=== PATIENT | female | born 1990 | race Two or more races ===

== ENCOUNTER → 2017-02-06 | Outpatient (REF) | payer OTHER | LOC: M SFHCLERA 13:17 | PROVIDERS: ATTEND Nurse Practitioner Family | DX: J02.9 Acute pharyngitis, unspecified (principal); L73.9 Follicular disorder, unspecified ==

== ENCOUNTER 2017-07-19 08:13 | Emergency (ER) | payer OTHER ==
[2017-07-19] MEDS: CIPROFLOXACIN HC OTIC SUSPENSION AS (08:39)
== END 2017-07-19 09:31 | disposition home or self-care (01) ==
LOC: M ED 08:13
DX: J02.9 Acute pharyngitis, unspecified (principal); H66.92 Otitis media, unspecified, left ear; F33.9 Major depressive disorder, recurrent, unspecified; F17.200 Nicotine dependence, unspecified, uncomplicated; Z79.899 Other long term (current) drug therapy
CPT/HCPCS: 87880

== ENCOUNTER → 2021-02-04 | Outpatient (CLI) | payer OTHER ==
[~2021-02-04] MED LIST: ABIL1TAB13 PO; ACET-716 PO; BUPR300T92; CIPR0.3S6 AS; HYDR-3715 PO; METH20TA29 PO; ZOFR4TAB14 PO; [UNRECOGNIZED DRUG - CODE]
== END ==
LOC: M LABSMTC 10:19
PROVIDERS: ATTEND Anesthesiology
DX: Z20.828 Contact with and (suspected) exposure to other viral communicable diseases (principal); Z11.52 Encounter for screening for COVID-19

== ENCOUNTER 2021-02-09 10:50 | Day surgery (SDC) | payer OTHER ==
[~2021-02-09] VITALS: Ht 175.3 cm; Wt 84.1 kg
[~2021-02-09 10:50] MED LIST changes: +LR 1,000 ML IV ONE
--- OUTSIDE RECORDS SUMMARY | 2021-02-09 10:52 | CCD | Continuity of Care Document ---
Author Author Tiffanie PAUL MD Organization Unknown Address [address] [facility] [address] [place] [address] Phone [phone] Care Team Providers Care Broiler Supervisor Name Role Phone Reason, Jerry Botello AUTM [phone] [facility] AUTM [phone] Problems Description No Information Available Social History Type Date Description Comments Sex Unknown ETOH Use Denies alcohol use Tobacco Use Start: Unknown Smokes 1/2 Pack A Day Recreational Drug Use Denies Drug Use Allergies, Adverse Reactions, Alerts Description No Known Drug Allergies Medications Active Medications SIG Qnty Indications Ordering Provide r Date Methylphenidate HCL 20mg Tablets Take One Tablet By Mouth Three Times A Day Maximum Daily Dose 3 Unknown Ibuprofen 800mg Tablets Take One Tablet By Mouth Twice A Day as Needed Unknown 00/0 Immunizations Description No Information Available Vital Signs Date Vital Result Comment 12/06/2020 1:38pm Height 69 inches 5'9" Weight 170.00 lb BMI (Body Mass Index) 25.1 kg/m2 [place] Body Weight 145 lb Weight 77.112 kg BSA (Body Surface Area) 1.93 m2 08/23/2020 10:28am Height 69 inches 5'9" Weight 170.00 lb BMI (Body Mass Index) 25.1 kg/m2 [place] Body Weight 145 lb Weight 77.112 kg BSA (Body Surface Area) 1.93 m2 Results Description No Information Available Procedures Date Code Description Status 12/06/2020 04685 Office/Outpatient Established Mo d MDM 30-39 Min Completed 08/23/2020 75903 Office/Outpatient New Moderate M DM 45-59 Minutes Completed Medical Devices Description No Information Available Encounters Type Date Location Provider Dx Diagnosis Office Visit 12/06/2020 1:30p [facility] Link Paul MD H65.493 Other chronic nonsuppurative otitis media, bilateral H69.93 Unspecified Eustachian tube disorder, bilateral Office Visit 08/23/2020 10:00a [facility] Link Paul MD H65.93 Unspecified nonsuppurative otitis media, bilateral H91.93 Unspecified hearing loss, bi lateral H69.93 Unspecified Eustachian tube disorder, bilateral Assessments Date Code Description Provider 12/06/2020 H65.493 Other chronic nonsuppurative berny tis media, bilateral Link Paul MD 12/06/2020 H69.93 Unspecified Eustachian tube diso rder, bilateral Link Paul MD 08/23/2020 H65.93 Unspecified nonsuppurative otiti s media, bilateral Link Paul MD 08/23/2020 H91.93 Unspecified hearing loss, bilate ral Link Paul MD 08/23/2020 H69.93 Unspecified Eustachian tube diso rder, bilateral Link Paul MD Plan of Treatment No Information Available Functional Status Description No Information Available Mental Status Description No Information Available Referrals Refer to Dr Reason for Referral Status Appt Link Paul MD SAMPLE PROCESSOR CHRONIC EARS INFECTIONS REF E RE[facility] Closed 08/03/[address] [address] [phone]
--- OUTSIDE RECORDS SUMMARY | 2021-02-09 10:53 | CCD | Continuity of Care Document ---
Author Author Tiffanie PAUL MD Organization Unknown Address [address] [place] [address] [address] [place] [address] Phone [phone] Care Team Providers Care Inspector Of Dredging Name Role Phone Reason, Jerry Botello AUTM [phone] [facility] AUTM [phone] Problems Description No Information Available Social History [...] Mouth Twice A Day as Needed Unknown 000 Immunizations Description No Information Available Vital Signs Date Vital Result Comment 12/06/2020 1:38pm Height 69 inches 5'9" Weight 170.00 lb BMI (Body Mass Index) 25.1 kg/m2 [place] Body Weight 145 lb Weight 77.112 kg BSA (Body Surface Area) 1.93 m2 08/23/2020 10:28am Height 69 inches 5'9" Weight 170.00 lb BMI (Body Mass Index) 25.1 kg/m2 [place] Body Weight 145 lb Weight 77.112 kg BSA (Body Surface Area) 1.93 m2 Results Description No Information Available Procedures Date Code Description Status 08/23/2020 68713 Office/Outpatient New Moderate M DM 45-59 Minutes Completed Medical Devices Description No Information Available Encounters Type Date Location Provider Dx Diagnosis Office Visit 08/23/2020 10:00a [facility] Link Paul MD H65.93 Unspecified [...] Description No Information Available Referrals Refer to Reason for Referral Status Appt Date Link Paul MD RECLAMATION WORKER CHRONIC EARS INFECTIONS REF E RE[facility] Closed 08/03/[address] [address] [phone]
--- OUTSIDE RECORDS SUMMARY | 2021-02-09 10:53 | CCD | Continuity of Care Document ---
Author Author Tiffanie PAUL MD Organization Unknown Address [address] [place] [address] [address] [place] [address] Phone [phone] Care Team Providers Care Education Supervisor Name Role Phone Reason, Jerry Botello AUTM [phone] [facility] AUTM [phone] Problems Description No Information Available Social History [...] lb BMI (Body Mass Index) 25.1 kg/m2 [place] Body Weight 145 lb Weight 77.112 kg BSA (Body Surface Area) 1.93 m2 08/23/2020 10:28am Height 69 inches 5'9" Weight 170.00 lb BMI (Body Mass Index) 25.1 kg/m2 [place] Body Weight 145 lb Weight 77.112 kg BSA (Body Surface Area) 1.93 m2 Results Description No Information Available Procedures Date Code Description Status 08/23/2020 77304 Office/Outpatient New Moderate M DM 45-59 Minutes Completed Medical Devices Description No Information Available Encounters Type Date Location Provider Dx Diagnosis Office Visit 08/23/2020 10:00a [facility] Link Paul MD H65.93 Unspecified [...] Referral Status Appt Date Link Paul MD DIRECTOR CASE MANAGEMENT CHRONIC EARS INFECTIONS REF E [facility] Closed 08/03/[address] [address] [phone]
--- OUTSIDE RECORDS SUMMARY | 2021-02-09 10:53 | CCD | Continuity of Care Document ---
Author Author Tiffanie PAUL MD Organization Unknown Address [address] [place] [address] [address] [place] [address] Phone [phone] Care Team Providers Care Bingo Worker Name Role Phone Reason, Jerry Botello AUTM [phone] [facility] AUTM [phone] Problems Description No Information Available Social History [...] lb BMI (Body Mass Index) 25.1 kg/m2 [place] Body Weight 145 lb Weight 77.112 kg BSA (Body Surface Area) 1.93 m2 08/23/2020 10:28am Height 69 inches 5'9" Weight 170.00 lb BMI (Body Mass Index) 25.1 kg/m2 [place] Body Weight 145 lb Weight 77.112 kg BSA (Body Surface Area) 1.93 m2 Results Description No Information Available Procedures Date Code Description Status 08/23/2020 49460 Office/Outpatient New Moderate M DM 45-59 Minutes Completed Medical Devices Description No Information Available Encounters Type Date Location Provider Dx Diagnosis Office Visit 08/23/2020 10:00a [facility] Link Paul MD H65.93 Unspecified [...] Referral Status Appt Date Link Paul MD RISK REDUCTION COUNSELOR CHRONIC EARS INFECTIONS REF E RE[facility]ON [facility] Closed 08/03/[address] [address] [phone]
--- OUTSIDE RECORDS SUMMARY | 2021-02-09 10:53 | CCD ---
Author Author [facility] Organization [facility] Address Unknown Phone Unavailable Care Team Providers Care Bakery Products Checker Name Role Phone Marilyn WAHL MD Unavailable Unavailable Marilyn WAHL MD Unavailable Unavailable Marilyn WAHL MD Unavailable Unavailable Marilyn WAHL MD Unavailable Unavailable Marilyn WAHL MD Unavailable Unavailable UNKNOWN Unavailable Unavailable Marilyn Soriano PA Unavailable Marilyn Soriano Sai PA Unavailable Soriano R Sai PA Unavailable Soriano R Sai PA Unavailable Soriano R Sai PA Unavailable Soriano R Sai PA Unavailable Soriano, R Sai PA Unavailable Soriano R Sai PA Unavailable Soriano, R Sai PA Unavailable Soriano, R Sai PA Unavailable Soriano R Sai PA Unavailable REASON, L EDWARD DO Unavailable Unavailable REASON, L EDWARD DO Unavailable Unavailable REASON, L EDWARD DO Unavailable Unavailable REASON, L EDWARD DO Unavailable Unavailable REASON, L EDWARD DO Unavailable Unavailable REASON, L EDWARD DO Unavailable Unavailable REASON, L EDWARD DO Unavailable Unavailable REASON, L EDWARD DO Unavailable Unavailable REASON, L EDWARD DO Unavailable Unavailable REASON, L EDWARD DO Unavailable Unavailable REASON, L EDWARD DO Unavailable Unavailable REASON, L EDWARD DO Unavailable Unavailable REASON, L EDWARD DO Unavailable Unavailable REASON, L EDWARD DO Unavailable Unavailable REASON, L EDWARD DO Unavailable Unavailable REASON, L EDWARD DO Unavailable Unavailable REASON, L EDWARD DO Unavailable Unavailable REASON, L EDWARD DO Unavailable Unavailable REASON, L EDWARD DO Unavailable Unavailable REASON, L EDWARD DO Unavailable Unavailable REASON, L EDWARD DO Unavailable Unavailable REASON, L EDWARD DO Unavailable Unavailable REASON, L EDWARD DO Unavailable Unavailable REASON, L EDWARD DO Unavailable Unavailable REASON, L EDWARD DO Unavailable Unavailable REASON, L EDWARD DO Unavailable Unavailable REASON, L EDWARD DO Unavailable Unavailable REASON, L EDWARD DO Unavailable Unavailable REASON, L EDWARD DO Unavailable Unavailable REASON, L EDWARD DO Unavailable Unavailable REASON, L EDWARD DO Unavailable Unavailable REASON, L EDWARD DO Unavailable Unavailable REASON, L EDWARD DO Unavailable Unavailable REASON, L EDWARD DO Unavailable Unavailable REASON, L EDWARD DO Unavailable Unavailable REASON, L EDWARD DO Unavailable Unavailable REASON, L EDWARD DO Unavailable Unavailable REASON, L EDWARD DO Unavailable Unavailable REASON, L EDWARD DO Unavailable Unavailable REASON, L EDWARD DO Unavailable Unavailable REASON, L EDWARD DO Unavailable Unavailable REASON, L EDWARD DO Unavailable Unavailable REASON, L EDWARD DO Unavailable Unavailable REASON, L EDWARD DO Unavailable Unavailable REASON, L EDWARD DO Unavailable Unavailable REASON, L EDWARD DO Unavailable Unavailable REASON, L EDWARD DO Unavailable Unavailable REASON, L EDWARD DO Unavailable Unavailable REASON, L EDWARD DO Unavailable Unavailable REASON, L EDWARD DO Unavailable Unavailable REASON, L EDWARD DO Unavailable Unavailable REASON, L EDWARD DO Unavailable Unavailable REASON, L EDWARD DO Unavailable Unavailable REASON, L EDWARD DO Unavailable Unavailable REASON, L EDWARD DO Unavailable Unavailable REASON, L EDWARD DO Unavailable Unavailable REASON, L EDWARD DO Unavailable Unavailable REASON, L EDWARD DO Unavailable Unavailable REASON, L EDWARD DO Unavailable Unavailable REASON, L EDWARD DO Unavailable Unavailable REASON, L EDWARD DO Unavailable Unavailable REASON, L EDWARD DO Unavailable Unavailable REASON, L EDWARD DO Unavailable Unavailable REASON, L EDWARD DO Unavailable Unavailable REASON, L EDWARD DO Unavailable Unavailable REASON, L EDWARD DO Unavailable Unavailable REASON, L EDWARD DO Unavailable Unavailable HUMBERTO, C LULU MD Unavailable Unavailable HUMBERTO, C LULU MD Unavailable Unavailable HUMBERTO, C LULU MD Unavailable Unavailable HUMBERTO, C LULU MD Unavailable Unavailable HUMBERTO, C LULU MD Unavailable Unavailable HUMBERTO, C LULU MD Unavailable Unavailable HUMBERTO, C LULU MD Unavailable Unavailable HUMBERTO, C LULU MD Unavailable Unavailable HUMBERTO, C LULU MD Unavailable Unavailable HUMBERTO, C LULU MD Unavailable Unavailable HUMBERTO, C LULU MD Unavailable Unavailable HUMBERTO, C LULU MD Unavailable Unavailable HUMBERTO, C LULU MD Unavailable Unavailable HUMBERTO, C LULU MD Unavailable Unavailable HUMBERTO, C LULU MD Unavailable Unavailable HUMBERTO, C LULU MD Unavailable Unavailable HUMBERTO, C LULU MD Unavailable Unavailable HUMBERTO, C LULU MD Unavailable Unavailable HUMBERTO, C LULU MD Unavailable Unavailable HUMBERTO, C LULU MD Unavailable Unavailable HUMBERTO, C LULU MD Unavailable Unavailable HUMBERTO, C LULU MD Unavailable Unavailable HUMBERTO, C LULU MD Unavailable Unavailable HUMBERTO, C LULU MD Unavailable Unavailable HUMBERTO, C LULU MD Unavailable Unavailable HUMBERTO, C LULU MD Unavailable Unavailable HUMBERTO, C LULU MD Unavailable Unavailable HUMBERTO, C LULU MD Unavailable Unavailable HUMBERTO, C LULU MD Unavailable Unavailable HUMBERTO, C LULU MD Unavailable Unavailable HUMBERTO, C LULU MD Unavailable Unavailable HUMBERTO, C LULU MD Unavailable Unavailable HUMBERTO, C LULU MD Unavailable Unavailable HUMBERTO, C LULU MD Unavailable Unavailable Re-disclosure Warning The records that you are about to access may contain information from federally-assisted alcohol or drug abuse programs. If such information is present, then the following federally mandated warning applies: This information has been disclosed to you from records protected by federal confidentiality rules (42 CFR part 2). The federal rules prohibit you from making any further disclosure of this information unless further disclosure is expressly permitted by the written consent of the person to whom it pertains or as otherwise permitted by 42 CFR part 2. A general authorization for the release of medical or other information is NOT sufficient for this purpose. The Federal rules restrict any use of the information to criminally investigate or prosecute any alcohol or drug abuse patient.The records that you are about to access may contain highly sensitive health information, the redisclosure of which is protected by Article 27-F of the [facility] Public Health law. If you continue you may have access to information: Regarding HIV / AIDS; Provided by facilities licensed or operated by the [facility] Office of Mental Health; or Provided by the [facility] Office for People With Developmental Disabilities. If such information is present, then the following [facility] mandated warning applies: This information has been disclosed to you from confidential records which are protected by state law. State law prohibits you from making any further disclosure of this information without the specific written consent of the person to whom it pertains, or as otherwise permitted by law. Any unauthorized further disclosure in violation of state law may result in a fine or shelter sentence or both. A general authorization for the release of medical or other information is NOT sufficient authorization for further disc losure. Allergies and Adverse Reactions Type Description Substance Reaction Status Data Source(s ) Drug allergy Drug allergy No Known Allergies [facility] Encounters Encounter Providers Location Date Indications Data Source(s ) Outpatient Attender: LULU Corado/Toya/Kayleen phillips 12/06/2020 01:30:00 PM EDT [facility] ([facility] Outpatient Attender: UNKNOWN CPSCAORT-LABEJN 08/23/2020 03:13:00 PM E [facility] Outpatient Attender: ESPERANZA DOMINGO DO ED-LAB 08/23 01:16:00 PM EDT - 08/23/2020 01:17:00 PM EDT Z205 [facility] Z205 Patient discharged. Outpatient Attender: LULU Corado/Gia phillips 08/23/2020 10:00:00 AM EDT [facility] ([facility]) Outpatient Attender: ABBIE WAHL MD SURG-LAB 07/06/2020 03:29:0 0 PM EDT [facility]. Emergency Attender: Sai BRASHER ED-ED 021 07:51:00 PM EST - 06/14/2020 08:56:00 PM EST EAR PAIN [facility] EAR PAIN Patient discharged. Outpatient [facility] 02/11/2020 11:32:00 AM EDT [facility] 02/09/2020 03:34:00 PM EDT [facility] 01/11/2020 07:16:01 AM EDT [facility] Out[facility] 01/09/2020 12:02:14 AM EDT [facility] Outpatient [facility] 01/08/2020 04:30:12 PM EDT [facility] Outpatient [facility] 01/08/2020 04:29:00 PM EDT [facility] Outpatient [facility] 01/08/2020 02:27:00 PM EDT [facility] Outpatient [facility] 01/07/2020 12:02:32 AM EDT [facility] Outpatient [facility] 01/06/2020 11:03:01 AM EDT [facility] Outpatient [facility] 01/06/2020 11:02:02 AM EDT [facility] Medications No Information Insurance Providers Payer name Policy type / Coverage type Policy ID Covered alliance party ID Covered alliance party's relationship to valverde Policy [place] Plan Information Managed Care [place] P [id number] S [id number] Managed Care [place] P [id number] S [id number] Medicaid S [id number] S [id number] Medicaid S [id number] S [id number] [facility] MEDICAID MANAGED CARE - OP [id number] und efined [id number] [place] [facility] [place] [id number] 18 [id number] Managed Care [place] P [id number] S [id number] MEDICAID [facility] [id number] Unknown [id number] Managed Care [place] P UNAVAILABLE S UNAVAILABLE Medicaid S UNAVAILABLE S UNAVAILA BLE BLUE CROSS -O/P [id number] 19 [id number] [facility] [id number] SP [id number] [employer] OTHER -CLINIC [id number] 18 [id number] [facility] [id number] S [id number] [facility] [place] 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 ) OFFICE OUTPATIENT NEW 45 MINUTES 08/23/2020 12:00:00 A M EDT [facility] ([facility] ) Results ID Date Data Source [id number] 08/23/2020 02:09:00 PM EDT [facility] Name Value Range Interpretation Code Description Data Sherice rce(s) Supporting Document(s) White Blood Count 3.5-10.5 Normal (applies to non-numeri c results) [facility] Red Blood Count 3.90-5.00 Normal (applies to non-numeric results) [facility] Hemoglobin 12.0-15.5 Normal (applies to non-numeric resul ts) [facility] Hematocrit 34.9-44.5 Normal (applies to non-numeric resul ts) [facility] Mean Corpuscular Volume 81.2-95.1 Normal (applies to non- numeric results) [facility] Mean Corpuscular Hgb 25.6-32.2 Normal (applies to non-num matti results) [facility] Mean Corpuscular Hgb Conc 32.0-36.0 Normal (applies to no n-numeric results) [facility] Red Cell Distribution Width 11.9-15.5 Normal (appli es to non-numeric results) [facility] Platelet Count 269 x10 3/uL 150-450 Normal (applies to non-numeric results) [facility] Mean Platelet Volume 9.4-12.4 Normal (applies to non-num matti results) [facility] Neutrophils% (Auto) 31.0-71.0 Normal (applies to non-nume markus results) [facility] Lymphocytes% (Auto) 20.0-55.0 Normal (applies to non-nume markus results) [facility] Monocytes% (Auto) 4.0-12.0 Normal (applies to non-numeri c results) [facility] Eosinophils% (Auto) 1.0-8.0 Normal (applies to non-nume markus results) [facility] Basophils% (Auto) 0.0-2.0 Normal (applies to non-numeri c results) [facility] Immature Granulocytes% (Auto) 0.0-2.0 Normal (rigo lies to non-numeric results) [facility] Neutrophils# (Auto) 1.50-6.20 Normal (applies to non-nume markus results) [facility] Lymphocytes# (Auto) 1.20-4.00 Normal (applies to non-nume markus results) [facility] Monocytes# (Auto) 0.00-0.90 Normal (applies to non-numeri c results) [facility] Eosinophils# (Auto) 0.00-0.50 Normal (applies to non-nume markus results) [facility] Basophils# (Auto) 0.00-0.20 Normal (applies to non-numeri c results) [facility] Immature Granulocytes# (Auto) 0.00-7.00 No rmal (applies to non-numeric results) [facility] ID Date Data Source [id number] 08/23/2020 08:50:00 PM EDT [facility] Name Value Range Interpretation Code Description Data Sherice rce(s) Supporting Document(s) Hepatitis C Virus Ab result Nonreactive Norm al (applies to non-numeric results) [facility] Test Performed By: [facility] [address] [place] [address] Director: Rachel Hinojosa MD ID Date Data Source [id number] 08/23/2020 06:45:00 PM EDT [facility] Name Value Range Interpretation Code Description Data Sherice rce(s) Supporting Document(s) Hep C Ab-T Test Nonreactive Normal (applies to non-numeric results) [facility] [address] [place] [address] Director: Rachel Hinojosa MD ID Date Data Source [id number] 08/23/2020 02:38:00 PM EDT [facility] Name Value Range Interpretation Code Description Data Sherice rce(s) Supporting Document(s) Sodium 142 mmol/L 136-145 Normal (applies to non-numeric resul ts) [facility] Potassium 3.5-5.1 Normal (applies to non-numeric resul ts) [facility] Chloride 104 mmol/L 98-107 Normal (applies to non-numeric resul ts) [facility] Carbon Dioxide CO2 21-32 Normal (applies to non-numer ic results) [facility] Anion Gap 5.0-16.0 Normal (applies to non-numeric resul ts) [facility] BUN 15 mg/dL 7-18 Normal (applies to non-numeric results) [facility] Creatinine,Serum 0.7-1.2 Normal (applies to non-numeric results) [facility] GFR >60 Normal (applies to non-numeric results) [facility] Glucose Level 101 mg/dL 60-99 Above high normal [facility] Reference range is only applicable when patient is fasting Note the following drug interference: Sulfasalazine Sulfapyridine Can see falsely depressed Can see falsely elevated result with up to 17% results with up to 11% decrease in measurement increase in measurement Recommend patients be collected for this test prior to administration of either drug. Calcium 8.5-10.1 Normal (applies to non-numeric resul ts) [facility] Bilirubin,Total 0.1-1.9 Normal (applies to non-numeric results) [facility] SGOT(AST) 10 U/L 15-37 Below low normal [facility] cheryl Note the following drug interference: Sulfasalazine Sulfapyridine Can see falsely depressed Can see falsely elevated result with up to 10% results with up to 10% decrease in measurement increase in measurement Recommend patients be collected for this test prior to administration of either drug. SGPT(ALT) 29 U/L 12-78 Normal (applies to non-numeric resul ts) [facility] Note the following drug interference: Sulfasalazine Sulfapyridine Can see falsely depressed Can see falsely elevated result with up to 29% results with up to 10% decrease in measurement increase in measurement Recommend patients be collected for this test prior to administration of either drug. Alkaline Phosphatase 53 U/L 38-126 Normal (applies to non-num matti results) [facility] can increase Alkaline Phosp le vels up to 2 times the normal adult value. Normal values for children and adolescents are 2 to 3 times the normal adult value. Total Protein 6.0-8.2 Normal (applies to non-numeric re sults) [facility] Albumin Level 3.4-5.0 Normal (applies to non-numeric re sults) [facility] ID Date Data Source [id number] 02/09/2020 04:38:22 PM EDT [facility] Current Problems: DENTAL BAPTIST STA TUS (ICD-V45.84) (ZVV60-J69.811)DENTAL CARIES EXTENDING INTO DENTINE (ICD-521.02) (BXC45-H00.62)Dental caries (ICD- 521.00) (LNV87-V31.9)Current Medications: * IBUPROFEN PRN * PROPANTHILINE * WELLBUTRIN * VENLIFAXINE Dental Chart: Procedures:Type - CDT Code - Description B - (D2335) Resin, 4 or more surfaces or involving incisal angle (anterior) on Tooth # 8 on Tooth Surface FMLI (Performed by Emily Kline DMD) Chart Alert:Prefers composite Needs periodic done at [facility] appt 02/03/18 SPinsurance approved ceramic crowns 5 an d 9 Chart Notes:jlam (Feb 11 2020 11:31AM): Pt. showed up 35 minites to original appt. and waited to be seen at a later time.[facility] (-)per pt. Took temp@ [facility]. Additional PPE requirements due to COVID-19 in the dental setting, N95, surgical mask, hair covering, gown CC: none. Cetacaine spray used as topical. UA infiltration 1/2 carp Lidocaine HCL 2% with 1:100,000 epi. Operative: #8- FMIL, etch, futuraBond, light-cured, A-3 [place], light-cured. Excavated with High Speed, Slow Speed and Spoon. Occlusion checked and polished. No complications. POI given. Assisted by:AM Pt was cooperative. NV: lona.Emily Kline DMD by shanna (02/11/2020 11:31 AM): Tooth Notes and Watches:- Tooth 12 Watch: Per Dr. Kline, Clinically the margine of 12 is sealed.Emily Kline DMD by reba (06/23/2019 1:13 PM): - Tooth 13 Note: Do first and evaluate #12Eliud Emily INGRAM by shanna (02/13/2019 10:55 AM): - Tooth 18 Watch: Winifred Mc by sebastian (06/27/2017 12:05 PM): - Tooth 18 Note: Add a layer of compositeEmily Kline by kassie (12/30/2017 3:51 PM): - Tooth 19 Note: Add a layer of composite Emily Kline by kassie (12/30/2017 3:51 PM): - Tooth 2 Watch: Emily Hua by kassie (02/03/2018 9:28 AM): - Tooth 20 Watch: watch marginParWinifred melendez by sebastian (06/27/2017 12:05 PM): - Tooth 30 Watch: Winifred Mc by sebastian (06/27/2017 12:06 PM): OccusalEmily Kline DMD by carrillo (02/12/2019 4:54 PM): - Tooth 31 Watch: Emily Hua by kassie (02/03/2018 9:27 AM): OcclusalLam Emily INGRAM by carrillo (02/12/2019 4:54 PM): - Tooth 9 Note: DL will be done if crown is not Emily Kline DMD by carrillo (02/12/2019 4:55 PM): Name Value Range Interpretation Code Description Data Sherice rce(s) Supporting Document(s) ID Date Data Source [id number] 01/08/2020 03:00:31 PM EDT [facility] Current Problems: DENTAL BAPTIST STA TUS (ICD-V45.84) (CCC76-N27.811)DENTAL CARIES EXTENDING INTO DENTINE (ICD-521.02) (JSZ40-B06.62)Dental caries (ICD- 521.00) (ETB63-E67.9)Current Medications: * IBUPROFEN PRN * PROPANTHILINE * WELLBUTRIN * VENLIFAXINE Dental Chart: Procedures:Type - CDT Code - Description B - (D0274) Bitewings, 4 radiographic images (Performed by Rosi Ryan) B - (D1110) Prophylaxis, adult (Performed by Rosi Ryan) B - (D0120) Periodic oral evaluation - established patient (Performed by Emily Kline DMD) B - (D0220) Intraoral, periapical, first radiographic image on Tooth # 8 (Performed by Rosi Ryan) Treatments:Type - CDT Code - Description T - (D2393) Resin-based composite, 3 surfaces, posterior on Tooth # 15 on Tooth Surface MOD (Performed by Rosi Ryan) T - (D2391) Resin-based composite - one surface, posterior on Tooth # 2 on Tooth Surface B (Performed by Rosi Ryan) T - (D2392) Resin-based composite, 2 surfaces, posterior on Tooth # 21 on Tooth Surface DO (Performed by Rosi Ryan) Existing:Type - CDT Code - Description[E] Decay On #15 Surface MOD, #2 Surface B[E] Resin-Based Composite - Direct On #21 Surface DO[E] Defective Restore On #21 Surface DO Chart Alert:Prefers composite Needs periodic done at [facility] appt 02/03/18 SPinsurance approved ceramic crowns 5 and 9 Chart Notes:jlam (Jan 08 2020 4:28PM): Additional PPE requirements due to COVID-19 in the dental setting, N95, surgical mask, hair covering, gown and shield [facility]). CC: none. Reviewed Xrays. Exam: caries detected. OCS: WNL IO/ EO completed, No significant hard findings upon clinical exam Pt was cooperative.OHI givenReferral: [place] on #5 and #9NV:fillingPt was Rosi Healy by shanna (01/08/2020 4:28 PM): ; seamus (Jan 08 2020 4:02PM): [facility]- no changescc-NoneAdditional PPE requirements due to COVID-19 in the dental setting, N95, surgical mask, hair covering, gown. Referral -crown on # 8 and 5Adult prophy -handscaled, polished with rotary cup, flossed 4BWX-dexana, PA#8 OH-goodPatient reported brushing twice/day, flossing regularly. Patient uses Listerine zero total careTrace marginal biofilm. Occlusal cusp worn down on molars . Recommended a night guardTissues- mild bleeding on flossing between # 19-79JBR-tffgdoyd am pm, flossing and then using Listerine zero total carePatient was cooperativeNV-FillingRosi Norton by seamus (01/08/2020 3:54 PM): Tooth Notes and Watches:- Tooth 12 Watch: Per Dr. Kline, Clinically the margine of 12 is sealed.Emily Kline DMD by reba (06/23/2019 1:13 PM): - Tooth 13 Note: Do first and evaluate #12Lam Emily INGRAM by shanna (02/13/2019 10:55 AM): - Tooth 18 Watch: Winifred Mc by sebastian (06/27/2017 12:05 PM): - Tooth 18 Note: Add a layer of compositeEmily Kline by kassie (12/30/2017 3:51 PM): - Tooth 19 Note: Add a layer of composite Emily Kline by kassie (12/30/2017 3:51 PM): - Tooth 2 Watch: Emily Hua by kassie (02/03/2018 9:28 AM): - Tooth 20 Watch: watch Winifred Hill by sebastian (06/27/2017 12:05 PM): - Tooth 30 Watch: Winifred Mc by sebastian (06/27/2017 12:06 PM): OccusalEmily Kline DMD by carrillo (02/12/2019 4:54 PM): - Tooth 31 Watch: Emily Hua by kassie (02/03/2018 9:27 AM): OcclusalLam Emily INGRAM by carrillo (02/12/2019 4:54 PM): - Tooth 9 Note: DL will be done if crown is not Kline Emily INGRAM by carrillo (02/12/2019 4:55 PM): Assessment & Plan Problems:Added: DENTAL BAPTIST STATUS (ICD-V45.84) (ZJY12-O19.811)Orders:Belting Inspector Referral [[id number]] Name Value Range Interpretation Code Description Data Sherice rce(s) Supporting Document(s) Procedure Social History No Information Vital Signs ID Date Data Source UNK Name Value Range Interpretation Code Description Data Source(s) Body height 69 [in_i] 69 [in_i] [facility] ([facility]) 5'9" Body weight 170.00 [lb_av] 170.00 [lb_av] [facility] T ([facility]) Body mass index (BMI) [Ratio] 25.1 kg/m2 25.1 k g/m2 [facility] ([facility]) [place] body weight 145 [lb_av] 145 [lb_av] [facility] T ([facility]) Body weight 77.112 kg 77.112 kg [facility] ([facility]) Body surface area Derived from formula 1.93 m2 1.93 m2 [facility] ([facility]) Body height 69 [in_i] 69 [in_i] [facility] ([facility]) 5'9" Body weight 170.00 [lb_av] 170.00 [lb_av] [facility] T ([facility]) Body surface area Derived from formula 1.93 m2 1.93 m2 [facility] ([facility]) Body weight 77.112 kg 77.112 kg [facility] ([facility]) Body mass index (BMI) [Ratio] 25.1 kg/m2 25.1 k g/m2 [facility] ([facility]) [place] body weight 145 [lb_av] 145 [facility]_av] [facility] Body weight 77.112 kg 77.112 kg [facility] ([facility]) Body mass index (BMI) [Ratio] 25.1 kg/m2 25.1 k g/m2 [facility] ([facility]) Body weight 170.00 [lb_av] 170.00 [lb_av] [facility] Body height 69 [in_i] 69 [in_i] [facility] ([facility]) 5'9" [place] body weight 145 [lb_av] 145 [lb_av] [facility] Body surface area Derived from formula 1.93 m2 1.93 m2 [facility] ([facility]) ID Date Data Source [id number] 06/14/2020 08:56:00 PM EST [facility] Name Value Range Interpretation Code Description Data Source(s) Weight Measurement Method 8 8 [facility] Weight 2640 2640 [facility] Temperature Source 7 7 [facility] Temperature 98.4 98.4 [facility] spital Respiratory Effort 1 1 [facility] Respiratory Rate [address] [facility] Pulse Assessment Method 4 4 [facility] Pulse Rate [address] [facility] pital Height 69 69 [facility] Blood Pressure 123/82 123/82 [facility]
[2021-02-09] MEDS ORDERED: SILVER NITRATE APPLICATOR As Ordered ONE (10:57)
[2021-02-09] MEDS ORDERED: CIPRODEX OTIC SUSP 7.5ML As Ordered ONE (10:57)
[2021-02-09] MEDS ORDERED: OXYMETAZOLINE 0.05% NASAL SPRAY (AFRIN) As Ordered ONE (10:58)
[2021-02-09] MEDS ORDERED: ONDANSETRON 4MG/2ML VIAL As Ordered ONE (11:44)
[2021-02-09] MEDS ORDERED: ROCURONIUM BROMIDE 50 MG/5 ML VIAL As Ordered ONE (11:44)
[2021-02-09] MEDS ORDERED: fentaNYL 250 MCG/5 ML INJECTION (J3010) As Ordered ONE (11:44)
[2021-02-09] MEDS ORDERED: dexameTHASONE 4 MG/ML 1ML VIAL (J1100 PER 1MG) As Ordered ONE (11:44)
[2021-02-09] MEDS ORDERED: propofoL 200 MG/20 ML VIAL As Ordered ONE (11:44)
[2021-02-09] MEDS ORDERED: LIDOCAINE 2% 100MG/5ML SDV (FOR ANES.) As Ordered ONE (11:44)
[2021-02-09] MEDS ORDERED: MIDAZOLAM INJ 2MG/2ML VIAL (J2250 PER 1MG) As Ordered ONE (11:44)
[2021-02-09] MEDS ORDERED: SUGAMMADEX SODIUM 500 MG/5 ML VIAL (BRIDION) As Ordered ONE (11:44)
[2021-02-09] MEDS ORDERED: EPINEPHrine 1MG/ML INJ 30ML MD-VIAL As Ordered ONE (11:55)
[2021-02-09] MEDS ORDERED: ACETAMINOPHEN 1000MG 100ML IV BTL (OFIRMEV) (J0131 PER 10MG) As Ordered ONE (12:04)
[2021-02-09] MEDS ORDERED: METOCLOPRAMIDE INJ 10MG/2ML VIAL (J2765 PER 1) IV PRN (12:35)
[2021-02-09] MEDS ORDERED: oxyCODONE 5MG TAB PO PRN (12:35)
[2021-02-09] MEDS ORDERED: fentaNYL 100 MCG/2 ML INJECTION (J3010) IV PRN (12:35)
[2021-02-09] MEDS ORDERED: ONDANSETRON 4MG/2ML VIAL IV PRN (12:35)
[2021-02-09] MEDS ORDERED: LR 1,000 ML IV SCH ×2 (12:35)
[2021-02-09 13:40] VITALS: BP 105/59
--- NOTE | 2021-02-28 12:48 | RO ---
OPERATIVE NOTE DATE OF OPERATION: 02/09/2021 PREOPERATIVE DIAGNOSIS: Recurrent otitis media, adenoid hypertrophy. POSTOPERATIVE DIAGNOSIS: Recurrent otitis media, adenoid hypertrophy PROCEDURES PERFORMED: 1. Bilateral tympanostomy. 2. Nasal endoscopy. 3. Adenoidectomy. SURGEON: Link Corado MD ANESTHESIA: General. CLINICAL PREAMBLE: This 31-year-old woman presented to the office with a history of recurrent otitis media. Examination revealed intact and mildly retracted tympanic membrane. Management options including surgery listed above have been discussed with the patient. Depending on the finding of nasal endoscopy adenoidectomy will be performed if there was present of adenoid hypertrophy. The patient understood and consented to the procedures. OR NARRATION: Patent was identified in preoperative holding and brought to the operating room in stable condition. In the supine position on the operating room table, the patient received general anesthesia followed by mask ventilation. The patient's head was turned to the left side to expose the right ear. Ear speculum was inserted and cerumen was debrided. The right tympanic membrane was visualized under binocular magnification under an operating microscope and was found to be intact and mildly retracted. Myringotomy incision was made over the anterior-inferior quadrant of tympanic membrane. The right middle ear cleft was then suctioned clear. A 7 mm straight shank tympanostomy tube was inserted. Generic Ciprofloxacin with Dexamethasone drops were instilled, and a cotton ball was used to occlude the ear canal. The same procedure was carried out to place the same type of tympanostomy tube to the left ear as well. Attention was turned to performing nasal endoscopy. The patient was prepped and draped in usual fashion for the procedure. Both sides of the nasal cavity were decongested using pledget soaked in vasoconstrictive agents. Using rigid nasoendoscope both sides of the nasal cavity were inspected. Adenoid hypertrophy was noted in the nasopharyngeal area. No other mucosal lesion was noted in the nasal cavity. Decision was made to proceed with adenoidectomy. The patient was prepped and draped in the usual fashion for the procedure for the adenoidectomy. The Caridad-Joe mouth gag was inserted and suspended, the red rubber catheter was inserted via the right naris to retract the soft palate using a mirror, and the hypertropic adenoid tissue was ablated. Hemostasis was achieved. At the end of the procedure, sponge and instrument counts were correct. No complication was encountered. Estimated blood loss was 50 mL. General anesthesia was reversed and patient was extubated and brought to the recovery room in stable condition.
== END 2021-02-09 13:40 | disposition home or self-care (01) ==
LOC: M SDC 10:50
PROVIDERS: ATTEND Otolaryngology
DX: H65.23 Chronic serous otitis media, bilateral (principal); F17.218 Nicotine dependence, cigarettes, with other nicotine-induced disorders; F41.9 Anxiety disorder, unspecified; F32.9 Major depressive disorder, single episode, unspecified; Z79.899 Other long term (current) drug therapy
CPT/HCPCS: 31231; 42831; 69436; 81025; J0131; J1100; J2250; J2405; J3010